=== PATIENT | male | born 1960 | race Caucasian/White ===

== ENCOUNTER 2016-07-08 05:30 | Day surgery (SDC) | payer MEDICAID ==
[~2016-07-08] VITALS: Ht 180.3 cm; Wt 170.4 kg
[~2016-07-08 05:30] MED LIST: AMLO-512 PO; ASPI81 PO; BENA20 PO; CLON.2 PO; GABA-531 PO; HYDR25TA PO; INSNPH SQ; INSREG SQ; METO50 PO; SERT50TA12 PO
[2016-07-08] MEDS ORDERED: SODIUM CHLORIDE 0.9% 1,000 ML IV ONE ×2 (05:55→06:15)
[2016-07-08 16:37] LABS: GLUCOSE,POINT OF CARE 112 MG/DL (70-110)
== END 2016-07-08 09:30 | disposition home or self-care (01) ==
LOC: SURGERY 05:30
PROVIDERS: ATTEND Specialist
DX: K57.30 Diverticulosis of large intestine without perforation or abscess without bleeding (principal); K64.1 Second degree hemorrhoids; E11.22 Type 2 diabetes mellitus with diabetic chronic kidney disease; I12.9 Hypertensive chronic kidney disease with stage 1 through stage 4 chronic kidney disease, or unspecified chronic kidney disease; N18.9 Chronic kidney disease, unspecified; E78.5 Hyperlipidemia, unspecified; K21.9 Gastro-esophageal reflux disease without esophagitis; G47.30 Sleep apnea, unspecified; F10.21 Alcohol dependence, in remission; E66.01 Morbid (severe) obesity due to excess calories; Z87.891 Personal history of nicotine dependence; Z87.09 Personal history of other diseases of the respiratory system; Z79.4 Long term (current) use of insulin
CPT/HCPCS: 82962; J7030